=== PATIENT | female | born 1955 | race Native Hawaiian/Other Pacific Islander ===

== ENCOUNTER 2021-07-24 18:53 | Inpatient (IN) | payer OTHER ==
[~2021-07-24] VITALS: Ht 160 cm; Wt 124.5 kg
[2021-07-24 20:12] VITALS: BP 161/52; TEMP 98.6
[2021-07-25 00:44] VITALS: BP 141/52; TEMP 98.6; Ht 160 cm; Wt 124.5 kg
[2021-07-25 08:00] VITALS: BP 143/56; TEMP 98.5
[2021-07-25] MEDS ORDERED: HYDROCODONE BIT1 TAB PO (15:13)
[2021-07-25] MEDS ORDERED: PANTOPRAZOLE SO40 M1 PO (15:14)
[2021-07-25] MEDS ORDERED: ROPINIROLE3 MG PO (15:14)
[2021-07-25] MEDS ORDERED: TRAZODONE HYDR100 MG PO (15:15)
[2021-07-25] MEDS ORDERED: HYDR25TA60 PO (15:16)
[2021-07-25] MEDS ORDERED: PAROXETINE40 MG PO (15:19)
[2021-07-25] MEDS ORDERED: EUTHYROX125 MCG PO (15:20)
[2021-07-25] MEDS ORDERED: APIX1TAB PO (15:22)
[2021-07-25] MEDS ORDERED: ASPIRIN 8181 MG PO (15:23)
[2021-07-25 20:25] VITALS: BP 145/73; TEMP 98.6
[2021-07-26 08:00] VITALS: BP 135/44; TEMP 98.3
[2021-07-26 20:24] VITALS: BP 148/56; TEMP 99.6
[2021-07-27 06:13] LABS: PLATELET COUNT 212 K/uL (152-353)
[2021-07-27 08:00] VITALS: BP 152/55; TEMP 97.9
[2021-07-29 01:17] VITALS: BP 154/52; TEMP 98.5
[2021-07-29 08:00] VITALS: BP 151/73; TEMP 97
[2021-07-29 20:35] VITALS: BP 141/58; TEMP 98.1
[2021-07-30 20:24] VITALS: BP 128/50; TEMP 98.8
[2021-08-02 23:12] VITALS: BP 120/54; TEMP 98.9
[2021-08-03 08:00] VITALS: BP 176/66; TEMP 98.1
[2021-08-03 20:35] VITALS: BP 128/45; TEMP 98.4
[2021-08-04 20:44] VITALS: BP 105/49; TEMP 98.7
[2021-08-05 23:58] VITALS: BP 1128/43; TEMP 98.4
[2021-08-06 20:00] VITALS: BP 157/59; TEMP 99
== END 2021-08-07 17:40 | disposition home health service (06) | DRG 561 ==
LOC: MED/SURG 18:53
PROVIDERS: ADMIT Internal Medicine; ATTEND Internal Medicine
DX: Z47.1 Aftercare following joint replacement surgery (principal); Z96.651 Presence of right artificial knee joint; M25.561 Pain in right knee; M17.0 Bilateral primary osteoarthritis of knee; M25.562 Pain in left knee; M62.81 Muscle weakness (generalized); R26.2 Difficulty in walking, not elsewhere classified; Z74.1 Need for assistance with personal care; E66.01 Morbid (severe) obesity due to excess calories; I10 Essential (primary) hypertension; K21.9 Gastro-esophageal reflux disease without esophagitis; E03.9 Hypothyroidism, unspecified; G47.00 Insomnia, unspecified; G25.81 Restless legs syndrome
CPT/HCPCS: 80053; 85027; 87081